=== PATIENT | male | born 1960 | race Caucasian/White ===

== ENCOUNTER 2016-12-28 08:11 | Emergency (ER) | payer BC ==
[~2016-12-28] VITALS: Ht 177.8 cm; Wt 141.4 kg
[~2016-12-28 08:11] MED LIST: AMOXICILLIN 8751 TAB PO; ASPIRIN E.C. 8181 MG PO; BACTRIM DS 8001 TAB PO; COREG12.5 MG PO; DULCOLAX TAB5 MG PO; FLEXERIL 1010 MG/TAB PO; INTRON A IJ; LEVAQUIN 5500 MG/TA1 PO; NASONEX SPRAY17 GM NS; NORCO 325 MG-51 TAB; NORCO 325 MG-51 TAB PO; OMNICEF 300MG300 MG; OXYCODONE5 MG PO; ZOCOR 40MG40 MG PO; ZOFRAN 4MG T4 MG/TAB PO
[2016-12-28] MEDS ORDERED: LASIX 80MG TABL80 MG PO (08:34)
[2016-12-28] MEDS ORDERED: K-DUR 10 MEQ T10 MEQ PO (08:35)
[2016-12-28] MEDS ORDERED: COREG 25MG25 MG/TAB PO (08:35)
[2016-12-28] MEDS ORDERED: AMBIEN 5MG TABLE5 MG PO (08:36)
[2016-12-28 09:07] LABS: BASO % 0.2 % (0.0-2.0); EOS % 0.7 % (0-4.0); GRAN # 2.5 (1.4-6.5); GRAN % 60.5 % (42.2-75.2); HEMATOCRIT 40.7 % (42.0-52.0); HEMOGLOBIN 14.1 g/dl (13.5-18.0); LYMPH % 24.6 % (20.0-51.0); MEAN CELL VOLUME 88 fl (80.0-100.0); MEAN CORPUSCULAR HEMOGLOBIN 31 pg (27.0-31.0); MEAN CORPUSCULAR HGB CONC 35 g/dl (33.0-37.0); MEAN PLATELET VOLUME 8.4 fl (7.4-10.4); MONO # 0.6 (0.1-0.6); MONO % 13.3 % (1.7-9.3); PLATELET COUNT 113 K/mm3 (130-400); RED BLOOD COUNT 4.61 M/mm3 (4.20-5.60); WHITE BLOOD COUNT 4.2 K/mm3 (4.8-10.8)
[2016-12-28 09:18] LABS: ALBUMIN 3.7 gm/dL (3.5-5.0); BILIRUBIN,TOTAL 3.2 mg/dL (0.0-1.0); CALCIUM 8.8 mg/dL (8.4-10.2); CREATININE, serum 0.81 mg/dL (0.66-1.25); POTASSIUM 3.3 mmol/L (3.4-5.0); TOTAL PROTEIN 6.2 gm/dL (6.4-8.2)
[2016-12-28 09:34] LABS: PROLACTIN 22.9 ng/mL (3.7-17.9)
[2016-12-28 10:31] VITALS: BP 121/79; PULSE 74; TEMP 98
== END 2016-12-28 10:30 | disposition home or self-care (01) ==
LOC: COL.ER 08:11
PROVIDERS: Family Medicine
DX: R55 Syncope and collapse (principal); Z85.841 Personal history of malignant neoplasm of brain
CPT/HCPCS: J7030

== ENCOUNTER 2017-02-10 08:07 | Inpatient (IN) | payer BC ==
[2017-02-10] VITALS (7 sets, daily range): BP systolic 97–121; BP diastolic 58–82; PULSE 85–96; TEMP 97–98.9
[~2017-02-10] VITALS: Ht 177.8 cm; Wt 127.5 kg
[~2017-02-10 08:07] MED LIST changes: +AMBIEN 5MG TABLE5 MG PO; +COREG 25MG25 MG/TAB PO; +K-DUR 10 MEQ T10 MEQ PO; +LASIX 80MG TABL80 MG PO
[2017-02-10] MEDS ORDERED: PERCOCET 325 MG1 TA2 PO (09:00)
[2017-02-10] MEDS ORDERED: ZYRTEC 10MG10 MG PO (09:00)
[2017-02-10] MEDS ORDERED: SINGULAIR 110 MG/TAB PO (09:01)
[2017-02-10 09:43] LABS: BASO % 0.3 % (0.0-2.0); EOS % 0.2 % (0-4.0); GRAN % 66.4 % (42.2-75.2); HEMATOCRIT 43.8 % (42.0-52.0); HEMOGLOBIN 15.3 g/dl (13.5-18.0); LYMPH # 1.3 (1.2-3.4); MEAN CELL VOLUME 91 fl (80.0-100.0); MEAN CORPUSCULAR HEMOGLOBIN 32 pg (27.0-31.0); MEAN CORPUSCULAR HGB CONC 35 g/dl (33.0-37.0); MEAN PLATELET VOLUME 10.6 fl (7.4-10.4); MONO # 0.7 (0.1-0.6); MONO % 10.8 % (1.7-9.3); PLATELET COUNT 112 K/mm3 (130-400); RED BLOOD COUNT 4.84 M/mm3 (4.20-5.60); REDCELL DISTRIBUTION WIDTH-CV 13.9 % (11.5-14.5); WHITE BLOOD COUNT 6.1 K/mm3 (4.8-10.8)
[2017-02-10 09:46] LABS: ADJUSTED CALCIUM 9.2 mg/dL (8.4-10.2); ALANINE AMINOTRANSFERASE 26 U/L (21-72); ALBUMIN 4.2 gm/dL (3.5-5.0); ALKALINE PHOSPHATASE 49 U/L (50-136); ANION GAP 21 mmol/L (7-16); BILIRUBIN,TOTAL 2.8 mg/dL (0.0-1.0); BLOOD UREA NITROGEN 9 mg/dL (9-20); CALCIUM 9.4 mg/dL (8.4-10.2); CARBON DIOXIDE 19 mmol/L (22-30); CHLORIDE 100 mmol/L (98-107); GLUCOSE 108 mg/dL (74-106); POTASSIUM 3.1 mmol/L (3.4-5.0); SODIUM 140 mmol/L (137-145); TOTAL PROTEIN 6.4 gm/dL (6.4-8.2)
[2017-02-10 09:59] LABS: PROLACTIN 10.1 ng/mL (3.7-17.9)
[2017-02-10 10:12] LABS: C-REACTIVE PROTEIN < 0.5 mg/dL (0.0-0.9); TROPONIN-I < 0.012 ng/mL (0.000-0.034)
[2017-02-10 16:36] LABS: MAGNESIUM 1.3 mg/dL (1.6-2.3)
[2017-02-10 22:59] LABS: PH 6 (5-8); SQUAMOUS EPITHELIAL 0-2 /hpf; URINE APPEARANCE Clear; URINE BACTERIA None Seen /hpf; URINE BILIRUBIN Positive (NEGATIVE); URINE BLOOD 3+ (NEGATIVE); URINE COLOR Amber; URINE GLUCOSE Negative (NEGATIVE); URINE KETONE 2+ (NEGATIVE); URINE RBC 20-50 /hpf
[2017-02-11] VITALS (8 sets, daily range): BP systolic 101–121; BP diastolic 48–72; PULSE 75–105; TEMP 97.9–98.6
[2017-02-11 13:25] LABS: BASO % 0.6 % (0.0-2.0); EOS % 0.3 % (0-4.0); GRAN # 1.8 (1.4-6.5); GRAN % 51.4 % (42.2-75.2); HEMATOCRIT 40.5 % (42.0-52.0); HEMOGLOBIN 14.1 g/dl (13.5-18.0); LYMPH # 1.2 (1.2-3.4); LYMPH % 33.4 % (20.0-51.0); MEAN CELL VOLUME 90 fl (80.0-100.0); MEAN CORPUSCULAR HEMOGLOBIN 31 pg (27.0-31.0); MEAN CORPUSCULAR HGB CONC 35 g/dl (33.0-37.0); MEAN PLATELET VOLUME 10.6 fl (7.4-10.4); MONO # 0.5 (0.1-0.6); PLATELET COUNT 96 K/mm3 (130-400); RED BLOOD COUNT 4.49 M/mm3 (4.20-5.60); REDCELL DISTRIBUTION WIDTH-CV 14.1 % (11.5-14.5); WHITE BLOOD COUNT 3.6 K/mm3 (4.8-10.8)
[2017-02-11 13:38] LABS: CREATININE, serum 0.7 mg/dL (0.66-1.25); POTASSIUM 3.1 mmol/L (3.4-5.0)
[2017-02-11 13:54] LABS: TROPONIN-I 0.015 ng/mL (0.000-0.034)
[2017-02-12 04:32] VITALS: BP 120/70; PULSE 74; TEMP 97.9
[2017-02-12 08:00] VITALS: BP 114/76; PULSE 79; TEMP 97.6
[2017-02-12 11:59] VITALS: BP 119/70; PULSE 80; TEMP 98.4
[2017-02-12 13:22] LABS: BASO % 0.5 % (0.0-2.0); EOS % 0.7 % (0-4.0); GRAN # 2.3 (1.4-6.5); GRAN % 56.6 % (42.2-75.2); HEMOGLOBIN 12.3 g/dl (13.5-18.0); LYMPH # 1.1 (1.2-3.4); LYMPH % 27.7 % (20.0-51.0); MEAN CELL VOLUME 90 fl (80.0-100.0); MEAN CORPUSCULAR HEMOGLOBIN 31 pg (27.0-31.0); MEAN CORPUSCULAR HGB CONC 34 g/dl (33.0-37.0); MEAN PLATELET VOLUME 10.1 fl (7.4-10.4); MONO # 0.6 (0.1-0.6); MONO % 14.3 % (1.7-9.3); PLATELET COUNT 76 K/mm3 (130-400); RED BLOOD COUNT 3.98 M/mm3 (4.20-5.60); WHITE BLOOD COUNT 4.1 K/mm3 (4.8-10.8)
[2017-02-12 13:27] LABS: HEMATOCRIT 35.8 % (42.0-52.0)
[2017-02-12 13:34] LABS: CALCIUM 8.5 mg/dL (8.4-10.2); CREATININE, serum 0.65 mg/dL (0.66-1.25); MAGNESIUM 1.5 mg/dL (1.6-2.3); POTASSIUM 3.4 mmol/L (3.4-5.0)
[2017-02-12] MEDS ORDERED: KEPPRA 500MG500 MG PO (13:39)
[2017-02-12] MEDS ORDERED: ZANTAC 300300 MG PO (13:40)
[2017-02-12] MEDS ORDERED: PROTONIX 40MG T40 MG PO (13:40)
[2017-02-12 14:49] VITALS: BP 112/66
[2017-02-12] MEDS ORDERED: TRANSDERM-0.5 MG/21 TD (14:58)
[2017-02-12] MEDS ORDERED: TOPROL XL 25MG25 MG PO (14:58)
[2017-02-12] MEDS ORDERED: DOXYCYCLINE 10100 MG PO (14:59)
[2017-02-12] MEDS ORDERED: K-TAB20 PO (15:00)
[2017-02-12] MEDS ORDERED: MAG-OX 400400 MG/TAB PO (15:00)
[2017-02-12 16:10] VITALS: BP 103/65; PULSE 76; TEMP 98.4
== END 2017-02-12 18:51 | disposition home or self-care (01) | DRG 312 ==
LOC: COL.ER 08:07 → MEDICAL 11:00
PROVIDERS: Emergency Medicine; Nurse Practitioner Family; Physician Assistant
DX: I95.1 Orthostatic hypotension (principal); C79.31 Secondary malignant neoplasm of brain; L03.116 Cellulitis of left lower limb; E44.0 Moderate protein-calorie malnutrition; Z68.41 Body mass index [BMI] 40.0-44.9, adult; E87.6 Hypokalemia; E83.42 Hypomagnesemia; M54.5 Low back pain; K21.9 Gastro-esophageal reflux disease without esophagitis; I10 Essential (primary) hypertension; Z85.820 Personal history of malignant melanoma of skin; Z92.21 Personal history of antineoplastic chemotherapy; Z92.3 Personal history of irradiation; Z87.891 Personal history of nicotine dependence
CPT/HCPCS: 99223-AI; 99233-AI; 99239; A9502; J1953; J2405; J2550; J2785; J3370; J3475; J3480; J7030; J7040; J7050; Q9967

== ENCOUNTER 2017-02-28 19:21 | Emergency (ER) | payer BC ==
[~2017-02-28] VITALS: Ht 177.8 cm; Wt 126.8 kg
[~2017-02-28 19:21] MED LIST changes: +DOXYCYCLINE 10100 MG PO; +K-TAB20 PO; +KEPPRA 500MG500 MG PO; +MAG-OX 400400 MG/TAB PO; +PERCOCET 325 MG1 TA2 PO; +PROTONIX 40MG T40 MG PO; +SINGULAIR 110 MG/TAB PO; +TOPROL XL 25MG25 MG PO; +TRANSDERM-0.5 MG/21 TD; +ZANTAC 300300 MG PO; +ZYRTEC 10MG10 MG PO
[2017-02-28 19:29] VITALS: TEMP 98
[2017-02-28 20:06] LABS: COLLECTION METHOD CLEAN CATCH
[2017-02-28 20:13] LABS: BASO % 0.7 % (0.0-2.0); EOS % 0.4 % (0-4.0); GRAN % 54.9 % (42.2-75.2); HEMATOCRIT 48.7 % (42.0-52.0); HEMOGLOBIN 16.8 g/dl (13.5-18.0); LYMPH # 1.5 (1.2-3.4); LYMPH % 27.8 % (20.0-51.0); MEAN CELL VOLUME 92 fl (80.0-100.0); MEAN CORPUSCULAR HEMOGLOBIN 32 pg (27.0-31.0); MEAN CORPUSCULAR HGB CONC 35 g/dl (33.0-37.0); MEAN PLATELET VOLUME 9.3 fl (7.4-10.4); MONO # 0.9 (0.1-0.6); MONO % 15.7 % (1.7-9.3); PLATELET COUNT 150 K/mm3 (130-400); RED BLOOD COUNT 5.32 M/mm3 (4.20-5.60); WHITE BLOOD COUNT 5.5 K/mm3 (4.8-10.8)
[2017-02-28 20:14] LABS: HYALINE CAST >12 /lpf; MUCOUS Present /lpf; PH 6 (5-8); SQUAMOUS EPITHELIAL 0-2 /hpf; URINE APPEARANCE Hazy; URINE BACTERIA Rare /hpf; URINE BILIRUBIN Positive (NEGATIVE); URINE BLOOD 3+ (NEGATIVE); URINE COLOR Amber; URINE GLUCOSE 1+ (NEGATIVE); URINE KETONE 2+ (NEGATIVE); URINE LEUKOCYTE ESTERASE Negative (NEGATIVE); URINE PROTEIN(semi-quant) 2+ (NEGATIVE); URINE RBC >50 /hpf; URINE UROBILINOGEN >=4.0 mg/dL (NEGATIVE)
[2017-02-28 20:24] LABS: ADJUSTED CALCIUM 9.2 mg/dL (8.4-10.2); ALBUMIN 4.3 gm/dL (3.5-5.0); BILIRUBIN,TOTAL 1.9 mg/dL (0.0-1.0); CALCIUM 9.4 mg/dL (8.4-10.2); CREATININE, serum 0.75 mg/dL (0.66-1.25); MAGNESIUM 1.5 mg/dL (1.6-2.3); POTASSIUM 3.2 mmol/L (3.4-5.0); TOTAL PROTEIN 6.8 gm/dL (6.4-8.2)
[2017-02-28] MEDS ORDERED: FENTANYL 25 MCG TD (21:13)
[2017-02-28] MEDS ORDERED: DECADRON 4MG TAB4 MG PO ×3 (23:09→23:57)
[2017-02-28] MEDS ORDERED: PHENERGAN 25 TA25 MG PO ×3 (23:09→23:57)
[2017-02-28] MEDS ORDERED: K-DUR 10 MEQ T10 MEQ PO (23:09)
[2017-03-01 00:02] VITALS: BP 138/101; PULSE 76
[2017-03-02] MEDS ORDERED: ZOFRAN8 MG PO (10:06)
== END 2017-03-01 00:02 | disposition home or self-care (01) ==
LOC: COL.ER 19:21
PROVIDERS: Emergency Medicine
DX: C43.9 Malignant melanoma of skin, unspecified (principal); C79.31 Secondary malignant neoplasm of brain; R11.10 Vomiting, unspecified
CPT/HCPCS: J1100; J1200; J2405; J2550; J3475; J7030

== ENCOUNTER 2017-03-02 09:25 | Day surgery (SDC) | payer BC ==
[~2017-03-02] VITALS: Ht 177.8 cm; Wt 122.4 kg
[~2017-03-02 09:25] MED LIST changes: +DECADRON 4MG TAB4 MG PO; +FENTANYL 25 MCG TD; +PHENERGAN 25 TA25 MG PO
[2017-03-02] MEDS ORDERED: ZOFRAN8 MG PO (10:06)
[2017-03-02 10:08] VITALS: BP 138/93; PULSE 70; TEMP 98.2
[2017-03-02 10:50] VITALS: BP 122/88; PULSE 71; TEMP 97.5
[2017-03-02 11:05] VITALS: BP 124/93; PULSE 70
[2017-03-02 11:25] VITALS: BP 125/80; PULSE 66
== END 2017-03-02 11:30 | disposition home or self-care (01) ==
LOC: SDCO 09:25
DX: K29.50 Unspecified chronic gastritis without bleeding (principal); C79.31 Secondary malignant neoplasm of brain; G47.33 Obstructive sleep apnea (adult) (pediatric); K29.80 Duodenitis without bleeding; I10 Essential (primary) hypertension; K21.9 Gastro-esophageal reflux disease without esophagitis; E78.00 Pure hypercholesterolemia, unspecified; G43.A1 Cyclical vomiting, in migraine, intractable; Z85.820 Personal history of malignant melanoma of skin; R56.9 Unspecified convulsions; Z82.3 Family history of stroke; Z92.3 Personal history of irradiation; Z83.3 Family history of diabetes mellitus; Z82.49 Family history of ischemic heart disease and other diseases of the circulatory system
CPT/HCPCS: OP; J2704; J7030

== ENCOUNTER 2017-07-14 21:15 | Emergency (ER) | payer BC ==
[~2017-07-14] VITALS: Ht 177.8 cm; Wt 145.5 kg
[~2017-07-14 21:15] MED LIST changes: +ZOFRAN8 MG PO
[2017-07-14 21:18] VITALS: BP 138/98; TEMP 97.3
[2017-07-14 23:00] VITALS: PULSE 94
== END 2017-07-14 23:00 | disposition home or self-care (01) ==
LOC: COL.ER 21:15
DX: T40.2X1A Poisoning by other opioids, accidental (unintentional), initial encounter (principal)

== ENCOUNTER 2017-07-23 12:30 | Outpatient (RCR) | payer BC | END 2017-09-05 | disposition home or self-care (01) | LOC: MKS.ESL.PT | DX: I89.0 Lymphedema, not elsewhere classified (principal); C79.9 Secondary malignant neoplasm of unspecified site; Z85.841 Personal history of malignant neoplasm of brain; Z98.890 Other specified postprocedural states; R29.6 Repeated falls ==

== ENCOUNTER → 2017-09-17 | Outpatient (CLI) | payer BC ==
[~2017-09-17] VITALS: Ht 177.8 cm; Wt 142.0 kg
[~2017-09-17] MED LIST changes: +COZAAR 25MG25 MG/TAB PO; +DECADRON 1MG TAB1 MG PO; +LEXAPRO 10MG10 MG PO; +MELATONIN5 M1 SL; +PRILOSEC 20MG20 MG PO; +PROBIOTIC FORMU1 CAP PO; +VITAMIN C500 MG PO; +VITAMIN E 400 U4001 PO
[2017-09-17 09:43] VITALS: BP 155/103; PULSE 92
[2017-09-17 11:35] VITALS: BP 150/105; PULSE 80
== END ==
LOC: COL.RAD 09:21
DX: R22.2 Localized swelling, mass and lump, trunk (principal); Z85.820 Personal history of malignant melanoma of skin

== ENCOUNTER 2017-10-14 21:00 | Emergency (ER) | payer BC ==
[~2017-10-14] VITALS: Ht 177.8 cm; Wt 145.5 kg
[2017-10-14 21:04] VITALS: TEMP 98.8
[2017-10-14 21:33] LABS: BASO % 0.4 % (0.0-2.0); GRAN # 4.4 (1.4-6.5); GRAN % 86.4 % (42.2-75.2); HEMATOCRIT 48.4 % (42.0-52.0); HEMOGLOBIN 16.9 g/dl (13.5-18.0); LYMPH # 0.4 (1.2-3.4); LYMPH % 8.1 % (20.0-51.0); MEAN CELL VOLUME 91 fl (80.0-100.0); MEAN CORPUSCULAR HEMOGLOBIN 32 pg (27.0-31.0); MEAN CORPUSCULAR HGB CONC 35 g/dl (33.0-37.0); MEAN PLATELET VOLUME 9.3 fl (7.4-10.4); MONO # 0.2 (0.1-0.6); MONO % 4.7 % (1.7-9.3); PLATELET COUNT 133 K/mm3 (130-400); RED BLOOD COUNT 5.32 M/mm3 (4.20-5.60); REDCELL DISTRIBUTION WIDTH-CV 13.9 % (11.5-14.5)
[2017-10-14 21:41] LABS: ALBUMIN 3.7 gm/dL (3.5-5.0); BILIRUBIN,TOTAL 1.9 mg/dL (0.0-1.0); C-REACTIVE PROTEIN 5.4 mg/dL (0.0-0.9); CALCIUM 8.9 mg/dL (8.4-10.2); CREATININE, serum 0.84 mg/dL (0.66-1.25); POTASSIUM 3.9 mmol/L (3.4-5.0); TOTAL PROTEIN 6.7 gm/dL (6.4-8.2)
[2017-10-14 21:55] LABS: ERYTHROCYTE SEDIMENTATION RATE 16 mm/hr (0-30)
[2017-10-14 21:57] LABS: COLLECTION METHOD CLEAN CATCH
[2017-10-14 22:05] LABS: MUCOUS Present /lpf; PH 5 (5-8); SQUAMOUS EPITHELIAL 0-2 /hpf; URINE APPEARANCE Hazy; URINE BACTERIA None Seen /hpf; URINE BILIRUBIN Negative (NEGATIVE); URINE BLOOD 2+ (NEGATIVE); URINE COLOR Yellow; URINE GLUCOSE Negative (NEGATIVE); URINE KETONE Trace (NEGATIVE); URINE LEUKOCYTE ESTERASE Negative (NEGATIVE); URINE NITRATE Negative (NEGATIVE); URINE PROTEIN(semi-quant) 1+ (NEGATIVE)
[2017-10-14] MEDS ORDERED: EDLUAR10 MG SL (23:23)
[2017-10-14] MEDS ORDERED: KEPPRA 500MG500 MG PO (23:24)
[2017-10-14] MEDS ORDERED: DULCOLAX STOOL100 MG PO (23:24)
[2017-10-14] MEDS ORDERED: NATURAL E400 IU PO (23:25)
[2017-10-14] MEDS ORDERED: DECADRON 4MG TAB4 MG PO (23:25)
[2017-10-14] MEDS ORDERED: TOPROL XL 25MG25 MG PO (23:26)
[2017-10-14] MEDS ORDERED: LEXAPRO 10MG10 MG PO (23:26)
[2017-10-14] MEDS ORDERED: ZOCOR 40MG40 MG PO (23:26)
[2017-10-14] MEDS ORDERED: PRIL40 PO (23:27)
[2017-10-14] MEDS ORDERED: COZAAR 25MG25 MG/TAB PO (23:27)
[2017-10-15 01:41] VITALS: BP 132/99; PULSE 92
== END 2017-10-15 01:46 | disposition short-term general hospital (02) ==
LOC: COL.ER 21:00
PROVIDERS: Emergency Medicine
DX: L03.116 Cellulitis of left lower limb (principal); I10 Essential (primary) hypertension; E78.5 Hyperlipidemia, unspecified; G40.909 Epilepsy, unspecified, not intractable, without status epilepticus; Z85.828 Personal history of other malignant neoplasm of skin; Z85.841 Personal history of malignant neoplasm of brain
CPT/HCPCS: J2270; J2405; J2543; J3370; J7030; J7040

== ENCOUNTER 2017-12-02 06:18 | Day surgery (SDC) | payer BC ==
[2017-12-02] VITALS (8 sets, daily range): BP systolic 116–143; BP diastolic 77–98; PULSE 72–91; TEMP 97.6–97.8
[~2017-12-02] VITALS: Ht 177.8 cm; Wt 147.5 kg
[~2017-12-02 06:18] MED LIST changes: +DULCOLAX STOOL100 MG PO; +EDLUAR10 MG SL; +NATURAL E400 IU PO; +PRIL40 PO
[2017-12-02] MEDS ORDERED: ULTRAM 50MG TAB50 MG PO (06:46)
[2017-12-02] MEDS ORDERED: NORVASC 10MG10 MG PO (06:47)
[2017-12-02] MEDS ORDERED: MELATONIN5 M1 SL (06:48)
[2017-12-02] MEDS ORDERED: DEMADEX10 MG PO (06:50)
[2017-12-02] MEDS ORDERED: AMBIEN 10MG10 MG PO (06:50)
== END 2017-12-02 11:04 | disposition home or self-care (01) ==
LOC: SDCO 06:18
DX: C43.72 Malignant melanoma of left lower limb, including hip (principal); C79.31 Secondary malignant neoplasm of brain; I10 Essential (primary) hypertension; E78.00 Pure hypercholesterolemia, unspecified; G47.33 Obstructive sleep apnea (adult) (pediatric); K21.9 Gastro-esophageal reflux disease without esophagitis; E66.01 Morbid (severe) obesity due to excess calories; Z87.891 Personal history of nicotine dependence; Z83.3 Family history of diabetes mellitus; Z82.3 Family history of stroke
CPT/HCPCS: C1788; J0690; J1644; J2250; J2704; J7120